=== PATIENT | female | born 1955 | race Caucasian/White ===

== ENCOUNTER 2017-01-30 10:10 | Emergency (ER) | payer MEDICARE, OTHER ==
[~2017-01-30] VITALS: Ht 170.2 cm; Wt 93.4 kg
[2017-01-30] MEDS ORDERED: ADVAIR 500-501 EACH INH (10:21)
[2017-01-30] MEDS ORDERED: FLUOXETINE HCL60 MG PO (10:22)
[2017-01-30] MEDS ORDERED: ZANAFLEX4 M1 PO (10:22)
[2017-01-30] MEDS ORDERED: OMEPRAZOLE20 M1 PO (10:22)
[2017-01-30] MEDS ORDERED: VENTOLIN HFA18 GM INH (10:22)
[2017-01-30] MEDS ORDERED: AUGMENTIN 875-1 EACH PO (10:51)
== END 2017-01-30 10:55 | disposition home or self-care (01) ==
LOC: ED 10:10
DX: S61.432A Puncture wound without foreign body of left hand, initial encounter (principal); E78.00 Pure hypercholesterolemia, unspecified; J45.909 Unspecified asthma, uncomplicated; W54.0XXA Bitten by dog, initial encounter; Z79.899 Other long term (current) drug therapy
CPT/HCPCS: 99283

== ENCOUNTER 2017-12-13 10:49 | Emergency (ER) | payer MEDICARE, OTHER ==
[~2017-12-13] VITALS: Ht 170.2 cm; Wt 93.4 kg
[~2017-12-13 10:49] MED LIST: ADVAIR 500-501 EACH INH; AUGMENTIN 875-1 EACH PO; FLUOXETINE HCL60 MG PO; OMEPRAZOLE20 M1 PO; VENTOLIN HFA18 GM INH; ZANAFLEX4 M1 PO
[2017-12-13] MEDS ORDERED: AUGMENTIN 875-1 EACH PO (11:31)
[2017-12-13] MEDS ORDERED: DIFLUCAN150 MG PO (11:31)
== END 2017-12-13 11:41 | disposition home or self-care (01) ==
LOC: ED 10:49
DX: J45.901 Unspecified asthma with (acute) exacerbation (principal); J32.9 Chronic sinusitis, unspecified; Z79.899 Other long term (current) drug therapy
CPT/HCPCS: 99283

== ENCOUNTER 2018-11-08 10:07 | Emergency (ER) | payer MEDICARE, OTHER ==
[~2018-11-08] VITALS: Ht 170.2 cm; Wt 98.7 kg
--- OUTSIDE RECORDS SUMMARY | ~2018-11-08 | XMS | Clinical Summary ---
Demographics + + + | Address | [address] | | | [place] [address] | + + + | Home Phone | | + + + | Preferred Language | Unknown | + + + | Marital Status | | + + + | Uatsdin Affiliation | Unknown | + + + | Race | Unknown | + + + | Ethnic Group | Unknown | + + + Author + + + | Author | [facility] | | | and [place] | + + + | Organization | [facility] | | | and [place] | + + + | Address | Unknown | + + + | Phone | Unavailable | + + + Support + + + + + | Name | Relationship | Address | Phone | + + + + + | Chi Chiang | ECON | [address] | | | | | [place], [place] | | | | | [address] | | + + + + + Care Team Providers + +------+ + | Care Chairman President And Chief Executive Officer Name | Role | Phone | + +------+ + | Hira Murphy | PP | | + +------+ + Allergies Not on File Medications Not on file Active Problems + + + | Problem | Noted Date | + + + | Acute pain of both shoulders | 11/19/2016 | + + + Social History + +-------+ +--------+------+ | Tobacco Use | Types | Packs/Day | Years | Date | | | | | Used | | + +-------+ +--------+------+ | Never Assessed | | | | | + +-------+ +--------+------+ + + + | Sex Assigned at | Date Recorded | | | | + + + | Not on file | | + + + + + + + | Job Start Date | Occupation | Industry | + + + + | Not on file | Not on file | Not on file | + + + + + + + + | Travel History | Travel Start | Travel End | + + + + + + | No recent travel history available. | + + Plan of Treatment + + + + + | Health Maintenance | Due Date | Last Done | Comments | + + + + + | Vaccine: | | | | | Dtap/Tdap/Td (1 - | 5 | | | | Tdap) | | | | + + + + + | Cervical Cancer | | | | | Screening (Pap) | 6 | | | + + + + + | Vaccine: Zoster (1 | | | | | of 2) | 6 | | | + + + + + | Vaccine: Influenza | | | | | (Season Ended) | 9 | | | + + + + + Results Not on filefrom Last 3 Months Insurance + +--------+ +--------+ +---------+--------+ | Payer | Benefi | Subscriber | Effect | Phone | Address | Type | | | t Plan | ID | lisset | | | | | | / | | Dates | | | | | | Group | | | | | | + +--------+ +--------+ +---------+--------+ | MEDICARE | MEDICA | [id number] | 06/02/19 | [phone] | | Medica | | | RE | | 15-Pre | 5 | | re | | | PART A | | sent | | | | | | AND B | | | | | | + +--------+ +--------+ +---------+--------+ | [place] | MEDICA | [id number] | | [phone] | | Medica | | | ID | | [id number] | 2 | | id | | | [place] | | esent | | | | + +--------+ +--------+ +---------+--------+ + +--------+ +--------+ + + | Guarantor Name | Accoun | Relation to | Date | Phone | Billing Address | | | t Type | Patient | of | | | | | | | | | | + +--------+ +--------+ + + | Janell Melvin | Person | Self [birth year] | [address] | | | al/Fam | | 1956 | [phone] | [place] [address] | | | alex | | | 6 (Home) | | + +--------+ +--------+ + + Advance Directives Patient has advance care planning documents on file. For more information, please contact:[facility] [place] [address]"
--- OUTSIDE RECORDS SUMMARY | ~2018-11-08 | XMS | Clinical Summary ---
Demographics + + + | Address | [address] | | | [place] [address] | + + + | Home Phone | | + + + | Preferred Language | Unknown | + + + | Marital Status | | + + + | Adventism Affiliation | Unknown | + + + | Race | Unknown | + + + | Ethnic Group | Unknown | + + + Author + + + | Author | [facility] | | | and [place] | + + + | Organization | [facility] | | | and [place] | [...] [place], [place] | | | | | [address] | | + + + + + Care Team Providers + +------+ + | Care Circuitry Negative Inspector Name | Role | Phone | + +------+ + | iHra Murphy | PP | | + +------+ [...] +--------+ +---------+--------+ | MEDICARE | MEDICA | [id number] | 06/02/19 | [phone] | | Medica | | | RE | | 15-Pre | 5 | | re | | | PART A | | sent | | | | | | AND B | | | | | | + +--------+ +--------+ +---------+--------+ | [place] | MEDICA | [id number] | | [phone] | | Medica | [...] Self | [birth year] | [address] | | | al/Fam | | 1956 | [phone] | [place] [address] | | | alex | | | 6 (Home) | | + +--------+ +--------+ + + Advance Directives Patient has advance care planning documents on file. For more information, please contact:[facility] [place] [address]"
[~2018-11-08 10:07] MED LIST changes: +DIFLUCAN150 MG PO
[2018-11-08] MEDS ORDERED: ZOFRAN4 MG SL (11:08)
[2018-11-08] MEDS ORDERED: ULTRAM50 MG PO (11:08)
== END 2018-11-08 11:38 | disposition home or self-care (01) ==
LOC: ED 10:07
DX: S42.001A Fracture of unspecified part of right clavicle, initial encounter for closed fracture (principal); E78.00 Pure hypercholesterolemia, unspecified; J45.909 Unspecified asthma, uncomplicated; Z90.89 Acquired absence of other organs; Z79.899 Other long term (current) drug therapy; W19.XXXA Unspecified fall, initial encounter
CPT/HCPCS: 73030; 99283

== ENCOUNTER 2018-11-12 11:58 | Emergency (ER) | payer MEDICARE, OTHER ==
[~2018-11-12] VITALS: Ht 170.2 cm; Wt 98.4 kg
[~2018-11-12 11:58] MED LIST changes: +ULTRAM50 MG PO; +ZOFRAN4 MG SL
[2018-11-12] MEDS ORDERED: ULTRAM50 MG PO (16:19)
[2018-11-12] MEDS ORDERED: ZOFRAN4 MG PO (16:19)
== END 2018-11-12 16:26 | disposition home or self-care (01) ==
LOC: ED 11:58
DX: M25.511 Pain in right shoulder (principal); J45.909 Unspecified asthma, uncomplicated; Z79.899 Other long term (current) drug therapy
CPT/HCPCS: 99283

== ENCOUNTER 2020-11-09 12:05 | Emergency (ER) | payer OTHER, MEDICARE ==
[~2020-11-09] VITALS: Ht 172.7 cm; Wt 95.2 kg
[~2020-11-09 12:05] MED LIST changes: +BACTRIM DS TAB1 EACH PO; +CELEBREX200 MG PO; +GABAPENTIN600 MG PO; +HYDROCODON-ACE1 EA11 PO; +NORTRIPTYLINE H10 MG PO; +PYRIDIUM100 MG PO; +ZOFRAN4 MG PO
[2020-11-09] MEDS ORDERED: ULTRAM50 MG PO (13:39)
== END 2020-11-09 13:56 | disposition home or self-care (01) ==
LOC: ED 12:05
DX: S43.402A Unspecified sprain of left shoulder joint, initial encounter (principal); X50.9XXA Other and unspecified overexertion or strenuous movements or postures, initial encounter; Y99.0 Civilian activity done for income or pay; E78.00 Pure hypercholesterolemia, unspecified; J45.909 Unspecified asthma, uncomplicated; Z79.899 Other long term (current) drug therapy
CPT/HCPCS: 73030; 99283-25

== ENCOUNTER 2021-04-21 04:19 | Emergency (ER) | payer MEDICARE, OTHER ==
[~2021-04-21] VITALS: Ht 172.7 cm; Wt 108.0 kg
== END 2021-04-21 04:55 | disposition home or self-care (01) ==
LOC: ED 04:19
DX: J45.901 Unspecified asthma with (acute) exacerbation (principal); Z96.643 Presence of artificial hip joint, bilateral; Z90.5 Acquired absence of kidney; Z79.899 Other long term (current) drug therapy
CPT/HCPCS: 99283

== ENCOUNTER 2021-07-24 07:04 | Day surgery (SDC) | payer MEDICARE, OTHER ==
[~2021-07-24] VITALS: Ht 172.7 cm; Wt 95.5 kg
[~2021-07-24 07:04] MED LIST changes: +HYDROCODONE BITA5 GM MISC
--- NOTE | 2021-07-24 09:27 | NUR ---
07/24/21 0927 Paige Montero 0920- PT TO PACU IN SF POSITION. OPENS EYES AND FOLLOWS COMMANDS. REMAINS DROWY. BREATHING EASY AND UNALBORED. SPO2 >95% ON 6 L O2 VIA SIMPLE MASK. 0923- PT OPENS EYES AND ASKING ABOUT PROCEDURE. PT STATES 7/10 PAIN. ANESTHESIA PROVIDER NOTIFIED. NEW ORDERS RECEIVED. O2 TITRATED DOWN TO ROOM AIR. BREATHING EASY AND UNLABORED.
--- NOTE | 2021-07-24 10:46 | NUR ---
1025/PT ARRIVED IN ROOM VIA STRETCHER FROM PACU. PT WAS AWAKE AND ORIETNED. PT HAD REQUESTED ICE CHIPS AND HAD THEM UPON ARRIVAL. VSS. PT REPORTS NO NAUSEA BUT REPORTS PAIN LEVEL 6/10. PT WAS OFFERED CRACKERS AND WATER. GUERO HA ADRESSED PT EATING CRACKERS BEFORE ADMINISTERING PAIN MEDS. PT SCD'S ARE IN PLACE. SMALL AMOUNT OF DRAINAGE NOTED TO DRIP PAD. PLAN OF CARE DISCUSSED. PT VOICES UNDERSTANDING.
--- NOTE | 2021-07-24 11:13 | NUR ---
1100: PT WITH CALL FOR THIS RN. REPORTS URGE TO VOID. DANGLED AT THE BEDSIDE. DARINEL WELL. DENIES DIZZINESS AND SOB. AMBULATES TO BR WITH STANDBY ASSIST FROM THIS RN. STEADY GAIT. SUCCESSFUL FIRST POST OP VOID, 500ML. BACK TO STRETCHER. DRIP PAD SATURATED AND CHANGED NECESSARY. IV CONVERTED TO SL. PT COMFORTABLE WITHOUT NEEDS AT THIS TIME, CALL LIGHT WITHIN REACH
--- NOTE | 2021-07-24 11:42 | NUR ---
PT ALERT, ORIENTED AND SUPPORTED BY HER SONA. PT STATED THHIS IS HER FOURTH SINUS SURGERY, READY FOR SOME RELIEF.ALL QUESTIONS ASKED ANSWERED. PT SEEMS ANXIOUS, HAD PT DO CLEANSING BREATH. PT REQUESTED PRAYER, WILL FOLLOW.
--- NOTE | 2021-07-24 12:02 | NUR ---
1125/PT IS AWAKE AND ORIENTED. PT VOICED PAIN STILL 11/09. GUERO SKINNER ADMINISTERED PAIN MEDICATION. VSS. PT DENIES NAUSEA. DRESSING HAD MILD RED DRAINAGE. STUDENT NURSE CHANGED DRESSING WITH GAUZE AND TAPE. SCD'S IN PLACE. CALL LIGHT WITHING REACH.
--- NOTE | 2021-07-24 12:44 | NUR ---
1235/PT IS ALERT AND ORIENTED. PT AMBULATED TO REST ROOM. VSS. PT VOICED PAIN IS 4/10 AND NO NAUSEA. DRESSING HAS MILD RED DRAINAGE. SCD'S IN PLACE. PT VOICED WANTING TO GO HOME. CALL LIGHT WITHIN REACH.
--- NOTE | 2021-07-24 13:12 | NUR ---
1305:DC INSTRUCTIONS PROVIDED AND DISCUSSED ORDERED. PT VOICES UNDERSTANDING AND DENIES QUESTIONS AND CONCERNS AT THIS TIME. WHEELED OFF OF UNIT BY THIS RN. TRANSFERS INTO VEHICLE INDEPENDENTLY AND APPROPRIATELY. NO PHYSICAL S/S OF DISTRESS AT THIS TIME
--- NOTE | 2021-07-24 16:56 | [place] ---
[facility] [address], [place] [address] Signed DATE OF OPERATION: 07/24/2021 SURGEON: Qasim Morrissey MD PREOPERATIVE DIAGNOSIS: Inferior turbinate hypertrophy. POSTOPERATIVE DIAGNOSIS: Inferior turbinate hypertrophy. PROCEDURE: Cautery bilateral inferior turbinates. ANESTHESIA: General, LMA; CHILD SUPPORT AGENT, Anne PREOPERATIVE HISTORY: Mrs. Olegario De La O is a 65-year-old lady with a long history of sinus problems. She had multiple sinus procedures 15-20 years ago. Since then, she has had continued problems with drainage, nasal congestion, unresponsive to appropriate medications, antibiotics, etc. CAT scan has been done recently of her sinuses showing clear sinuses, but significant inferior turbinate hypertrophy, which was confirmed on exam in the office. She is taken to the operating room for the above-mentioned procedures. OPERATIVE PROCEDURE AND FINDINGS: After informed consent, the patient was taken to the operating room and placed in supine position, where general LMA anesthesia was induced. Patient and procedure were verified. The patient received preoperative intravenous Ancef and intranasal oxymetazoline. Headlight speculum exam of the nasal cavity showed hypertrophic inferior turbinates, partially decongested. The right inferior turbinate was then cauterized with a long handle needle point cautery. Multiple transmucosal passes on the medial and inferior surface starting anteriorly extending all the way back posteriorly. Excellent shrinkage and decongestion of the turbinate was obtained in this manner. Same procedure on the left inferior turbinate. Bleeding was minimal stopped afterwards. Packing was placed, trimmed Merocel equal amount each side coated with Neosporin, tied anteriorly over a pad. The pharynx was suctioned clear of blood and secretions. The patient was then awakened, extubated, and transported to the recovery room in good condition. COMPLICATIONS: No complications. Electronically Signed By: QASIM MORRISSEY MD 07/24/21 1656 PATIENT NAME: VANIA MARINO OPERATIVE REPORT DATE OF : 55 REPORT #: [id number] PHYSICIAN: QASIM MORRISSEY MD PCP: DANETTE FLOYD NP REPORT IS CONFIDENTIAL AND NOT TO BE RELEASED WITHOUT AUTHORIZATION [facility] [address], [place] [address] Signed ESTIMATED BLOOD LOSS: Minimal. SPECIMENS: No specimens. DRAINS: No drains. PACKING: One piece of Merocel each nostril. Qasim Morrissey MD /MODL /[id number] Copies: ~ Electronically Signed By: QASIM MORRISSEY MD 07/24/21 1656 PATIENT NAME: VANIA MARINO OPERATIVE REPORT DATE OF : 55 REPORT #: [id number] PHYSICIAN: QASIM MORRISSEY MD PCP: DANETTE FLOYD NP REPORT IS CONFIDENTIAL AND NOT TO BE RELEASED WITHOUT AUTHORIZATION
== END 2021-07-24 13:01 | disposition home or self-care (01) ==
LOC: DS 07:04 → OPS 07:04 → DS 08:30 → OPS 13:01
PROVIDERS: ATTEND Otolaryngology
PROC: 095L7ZZ Destruction of Nasal Turbinate, Via Natural or Artificial Opening (ICD-10-PCS; principal; 2021-07-24 08:30)
DX: J34.3 Hypertrophy of nasal turbinates (principal); J45.909 Unspecified asthma, uncomplicated; N18.9 Chronic kidney disease, unspecified; M79.7 Fibromyalgia; Z88.5 Allergy status to narcotic agent
CPT/HCPCS: J0131; J0690; J1100; J1885; J2001; J2250; J2300; J2405; J2704